=== PATIENT | female | born 1975 | race Two or more races ===

== ENCOUNTER 2024-05-30 11:44 | Inpatient (IN) | payer OTHER ==
[~2024-05-30] VITALS: Ht 157.5 cm; Wt 58.2 kg
[2024-05-30 11:48] VITALS: O2SAT 98
[2024-05-30 12:12] LABS: HEMATOCRIT. 25.8 % (36.0-48.0); HEMOGLOBIN. 7.8 g/dL (12.0-16.0); MEAN CORPUSCULAR HEMOGLOBIN 21.8 pg (28.0-32.0); MEAN CORPUSCULAR HGB CONC 30.4 g/dL (31.0-37.0); MEAN CORPUSCULAR VOLUME 71.5 fL (81.0-99.0); MEAN PLATELET VOLUME 6.8 fl (7.4-10.4); PLATELET 744 x1000/uL (130-400); RED CELL DISTRIBUTION WIDTH 16.5 % (11.6-14.6)
[2024-05-30 12:13] LABS: DIFFERENTIAL COMMENT 1
[2024-05-30 12:20] LABS: CHLORIDE 102 mEq/L (98-107); POTASSIUM 3.7 mEq/L (3.5-5.1); SODIUM 133 mEq/L (136-145)
[2024-05-30 12:21] LABS: CALCIUM 8.6 mg/dL (8.7-10.4); CARBON DIOXIDE 25 mEq/L (21-32)
[2024-05-30 12:26] LABS: GLUCOSE 164 mg/dL (70-105); UREA NITROGEN BLOOD 12 mg/dL (9-23)
[2024-05-30 12:28] LABS: ALANINE AMINOTRANSFERASE 10 IU/L (10-49); ALBUMIN 3.9 g/dL (3.2-4.8); ASPARTATE AMINOTRANSFERASE 12 IU/L (<34); BILIRUBIN DIRECT 0.3 mg/dL (<=3.0); BILIRUBIN TOTAL 0.6 mg/dL (0.1-1.0)
[2024-05-30 12:29] LABS: PROTEIN TOTAL 6.9 g/dL (6.0-8.3)
[2024-05-30] MEDS: PIPERACILLIN/TAZO 3.375G/50ML 50 ML IV ONE (13:23)
[2024-05-30] MEDS: SODIUM CHLORIDE 0.9% 1000ML BAG (SEPSIS BOLUS) IV ONE (13:23)
[2024-05-30 13:29] LABS: HCG SCREEN NEGATIVE
[2024-05-30 13:59] LABS: LACTIC ACID 2.4 mmol/L (0.4-2.0)
[2024-05-30 14:24] LABS: ANISOCYTOSIS 1+; HYPOCHROMASIA 1+; MICROCYTOSIS 2+; PLATELET ESTIMATE INCREASED
[2024-05-30] MEDS ORDERED: IOHEXOL-300 100 ML BOTTLE ONE (16:52)
[2024-05-30] MEDS ORDERED: IPRATROPIUM/ALBUTEROL 0.5-3(2.5)MG/3ML NEB NEB PRN (18:00)
[2024-05-30] MEDS ORDERED: CLONIDINE 0.1MG TABLET PO PRN (18:00)
[2024-05-30] MEDS ORDERED: DOCUSATE SODIUM 100MG CAPSULE PO PRN (18:00)
[2024-05-30] MEDS ORDERED: DEXTROSE 50% WATER 50ML SYRINGE IV PRN (18:00)
[2024-05-30] MEDS ORDERED: NITROGLYCERIN 0.4MG TABLET SL SL PRN (18:00)
[2024-05-30] MEDS ORDERED: GUAIFENESIN 200MG/10ML SUGAR FREE UDC PO PRN (18:00)
[2024-05-30] MEDS ORDERED: ACETAMINOPHEN 325MG TABLET PO PRN (18:00)
[2024-05-30] MEDS ORDERED: MAGNESIUM/ALUMINUM HYDROXIDE/SIMETHICONE 30ML UDC PO PRN (18:00)
[2024-05-30] MEDS ORDERED: MEROPENEM 1,000 MG in SODIUM CHLORIDE 0.9% 100 ML IV SCH (18:00)
[2024-05-30 18:44] LABS: IRON 11 ug/dL (50-170)
[2024-05-30 18:46] LABS: TOTAL IRON BINDING CAPACITY 344 ug/dl (250-425)
[2024-05-30 18:50] LABS: FOLIC ACID (FOLATE) SERUM > 20.00 ng/mL (>5.38); T4 FREE 1.16 ng/dL (0.89-1.76); THYROID STIMULATING HORMONE 0.74 uIU/mL (0.55-4.78)
[2024-05-30 18:51] LABS: VITAMIN B12 SERUM > 2000 pg/mL (211-911)
[2024-05-30] MEDS: ACETAMINOPHEN 325MG TABLET PO ONE (19:45)
[2024-05-30] MEDS: LACTATED RINGERS 1,200 ML IV ONE (20:08)
[2024-05-30] MEDS: MEROPENEM 1G/100ML IV SCH (20:23)
[2024-05-30] MEDS: ASCORBIC ACID 500 MG TABLET PO SCH (21:00)
[2024-05-30] MEDS: ENOXAPARIN 40MG/0.4ML SYR SUBCUT SCH (21:40)
[2024-05-30] MEDS: BLOOD SUGAR DIAGNOSTIC STRIP TEST SCH (21:40)
[2024-05-30] MEDS: INSULIN LISPRO 100 UNITS/ML SUBCUT SCH (21:41)
[2024-05-30 22:00] VITALS: BP 133/75; PULSE 116; RESP 20; TEMP 100.9
[2024-05-30] MEDS: VANCOMYCIN 1.25GM PMX (XELLIA) 250 ML IV NR (22:32)
[2024-05-30] MEDS: DEXT 5%/LACTATED RINGERS 1,000 ML IV SCH (22:33)
[2024-05-30] MEDS: KETOROLAC 15MG/ML VIAL IV PRN (23:19)
[2024-05-30] MEDS ORDERED: NAPR-681 PO (23:41)
[2024-05-30] MEDS ORDERED: FLUC200T51 PO (23:41)
[2024-05-30] MEDS ORDERED: BISA10SU62 PR (23:41)
[2024-05-30] MEDS ORDERED: CIPR500S3 PO (23:41)
[2024-05-31] VITALS (7 sets, daily range): BP systolic 110–136; BP diastolic 63–80; PULSE 92–116; RESP 18–22; TEMP 96.6–103.8
[2024-05-31] MEDS: ACETAMINOPHEN 325MG TABLET PO PRN (04:54)
[2024-05-31 07:09] LABS: CLARITY URINE CLEAR (CLEAR); COLOR URINE YELLOW (YELLOW); GLUCOSE URINE NEGATIVE (NEGATIVE); KETONES URINE TRACE (NEGATIVE); LEUKOCYTE ESTERASE URINE NEGATIVE (NEGATIVE); NITRITE URINE NEGATIVE (NEGATIVE); OCCULT BLOOD URINE 2+ (NEGATIVE); PROTEIN URINE 1+ (NEGATIVE); SPECIFIC GRAVITY URINE 1.035 (1.005-1.030); UROBILINOGEN URINE 0.2 E.U./dL (0.2-1.0)
[2024-05-31 07:29] LABS: UCG SCREEN NEGATIVE
[2024-05-31 07:34] LABS: CHLORIDE 103 mEq/L (98-107); POTASSIUM 3.3 mEq/L (3.5-5.1); SODIUM 134 mEq/L (136-145)
[2024-05-31 07:35] LABS: CALCIUM 8.3 mg/dL (8.7-10.4); CARBON DIOXIDE 25 mEq/L (21-32)
[2024-05-31 07:40] LABS: CREATININE 0.9 mg/dL (0.6-1.0); GLUCOSE 128 mg/dL (70-105); UREA NITROGEN BLOOD 18 mg/dL (9-23)
[2024-05-31 07:42] LABS: ALANINE AMINOTRANSFERASE 13 IU/L (10-49); ALBUMIN 3.4 g/dL (3.2-4.8); ASPARTATE AMINOTRANSFERASE 10 IU/L (<34); BILIRUBIN TOTAL 0.3 mg/dL (0.1-1.0); PHOSPHORUS 3.6 mg/dL (2.5-4.9); PROTEIN TOTAL 6.2 g/dL (6.0-8.3)
[2024-05-31 08:04] LABS: HEMATOCRIT. 23.8 % (36.0-48.0); HEMOGLOBIN. 7.2 g/dL (12.0-16.0); MEAN CORPUSCULAR HEMOGLOBIN 21.8 pg (28.0-32.0); MEAN CORPUSCULAR HGB CONC 30.2 g/dL (31.0-37.0); MEAN CORPUSCULAR VOLUME 72.3 fL (81.0-99.0); MEAN PLATELET VOLUME 7.8 fl (7.4-10.4); PLATELET 606 x1000/uL (130-400); RED BLOOD CELL COUNT 3.29 mill/uL (4.2-5.4); RED CELL DISTRIBUTION WIDTH 16.8 % (11.6-14.6); WHITE BLOOD COUNT 28.2 x1000/uL (4.5-11.0)
[2024-05-31 08:06] LABS: FINE GRANULAR CASTS URINE 0-5 /lpf; HYALINE CASTS URINE 0-5 /lpf
[2024-05-31 08:07] LABS: SQUAMOUS EPITHELIAL CELL URINE 1+ /lpf (RARE/1+)
[2024-05-31 08:07] LABS: DIFFERENTIAL COMMENT 1
[2024-05-31 08:10] LABS: *AMPHETAMINES SCREEN URINE PRESUMPTIVE POSITIVE (NEGATIVE); *BARBITURATES SCREEN URINE NEGATIVE (NEGATIVE); *BENZODIAZEPINES SCREEN URINE NEGATIVE (NEGATIVE); *COCAINE SCREEN URINE NEGATIVE (NEGATIVE); BACTERIA URINE 2+; METHADONE URINE SCREEN NEGATIVE (NEGATIVE)
[2024-05-31 08:11] LABS: CANNABINOID URINE SCREEN NEGATIVE (NEGATIVE); ECSTASY MDMA SCREEN URINE NEGATIVE (NEGATIVE); OPIATES URINE SCREEN NEGATIVE (NEGATIVE); PHENCYCLIDINE URINE SCREEN NEGATIVE (NEGATIVE)
[2024-05-31] MEDS: POTASSIUM CHLORIDE 20MEQ TABLET SR PO NR (09:25)
[2024-05-31] MEDS: PANTOPRAZOLE SODIUM 40 MG/VIAL IV SCH (09:25)
[2024-05-31] MEDS: VANCOMYCIN 750MG/150ML (BAXTER) IV SCH (09:25)
[2024-05-31] MEDS: ZINC SULFATE 220 MG ( 50 ) CAPSULE PO SCH (09:25)
[2024-05-31 16:47] LABS: HYPOCHROMASIA 2+; MICROCYTOSIS 2+; PLATELET ESTIMATE INCREASED
[2024-06-01] VITALS (10 sets, daily range): BP systolic 107–138; BP diastolic 62–84; PULSE 89–114; RESP 18–20; TEMP 89–102.4
[2024-06-01 06:55] LABS: CHLORIDE 106 mEq/L (98-107); POTASSIUM 3.8 mEq/L (3.5-5.1); SODIUM 136 mEq/L (136-145)
[2024-06-01 06:56] LABS: CALCIUM 8.1 mg/dL (8.7-10.4); CARBON DIOXIDE 25 mEq/L (21-32)
[2024-06-01 07:01] LABS: GLUCOSE 123 mg/dL (70-105); UREA NITROGEN BLOOD 15 mg/dL (9-23)
[2024-06-01 07:03] LABS: ALANINE AMINOTRANSFERASE < 7 IU/L (10-49); ALBUMIN 3.2 g/dL (3.2-4.8); ASPARTATE AMINOTRANSFERASE 10 IU/L (<34); BILIRUBIN TOTAL 0.3 mg/dL (0.1-1.0); PROTEIN TOTAL 5.9 g/dL (6.0-8.3)
[2024-06-01 07:08] LABS: MEAN CORPUSCULAR HEMOGLOBIN 21.8 pg (28.0-32.0); MEAN CORPUSCULAR HGB CONC 30.5 g/dL (31.0-37.0); MEAN CORPUSCULAR VOLUME 71.5 fL (81.0-99.0); MEAN PLATELET VOLUME 7.6 fl (7.4-10.4); PLATELET 477 x1000/uL (130-400); RED BLOOD CELL COUNT 2.86 mill/uL (4.2-5.4); RED CELL DISTRIBUTION WIDTH 16.5 % (11.6-14.6)
[2024-06-01 07:22] LABS: CREATININE 0.5 mg/dL (0.6-1.0)
[2024-06-01 07:54] LABS: DIFFERENTIAL COMMENT 1
[2024-06-01 07:57] LABS: HEMATOCRIT. 20.5 % (36.0-48.0); HEMOGLOBIN. 6.2 g/dL (12.0-16.0)
[2024-06-01] MEDS: PIPERACILLIN/TAZO 3.375G/50ML 50 ML IV SCH ×2 (16:00→21:35)
[2024-06-01] MEDS: ONDANSETRON HCL 4MG/2ML INJ IV PRN (16:52)
[2024-06-01 19:46] LABS: HYPOCHROMASIA 1+; MICROCYTOSIS 1+; PLATELET ESTIMATE NORMAL
[2024-06-01] MEDS ORDERED: VANCOMYCIN 1G PREMIX 200 ML IV SCH (21:00)
[2024-06-01] MEDS: ZOLPIDEM TARTRATE 5MG TABLET PO PRN (21:36)
[2024-06-02] VITALS: BP 128/74; PULSE 98; RESP 18; TEMP 102.2
[2024-06-02 04:00] VITALS: BP 115/72; PULSE 95; RESP 18; TEMP 98.9
[2024-06-02 04:14] LABS: CHLAMYDIA TRACHOMATIS NAA Negative (Negative); NEISSERIA GONORRHOEAE NAA Negative (Negative)
[2024-06-02 07:41] LABS: HEMATOCRIT. 22.8 % (36.0-48.0); HEMOGLOBIN. 7.1 g/dL (12.0-16.0); MEAN CORPUSCULAR HEMOGLOBIN 22.6 pg (28.0-32.0); MEAN CORPUSCULAR VOLUME 73.1 fL (81.0-99.0); MEAN PLATELET VOLUME 7.9 fl (7.4-10.4); PLATELET 462 x1000/uL (130-400); RED BLOOD CELL COUNT 3.12 mill/uL (4.2-5.4); RED CELL DISTRIBUTION WIDTH 17.3 % (11.6-14.6)
[2024-06-02 07:46] LABS: DIFFERENTIAL COMMENT 1
[2024-06-02 07:53] LABS: CARBON DIOXIDE 26 mEq/L (21-32); CHLORIDE 102 mEq/L (98-107); POTASSIUM 3.5 mEq/L (3.5-5.1); SODIUM 135 mEq/L (136-145)
[2024-06-02 07:54] LABS: CALCIUM 8.1 mg/dL (8.7-10.4)
[2024-06-02 07:59] LABS: CREATININE 0.6 mg/dL (0.6-1.0); GLUCOSE 127 mg/dL (70-105); UREA NITROGEN BLOOD 13 mg/dL (9-23)
[2024-06-02 08:00] VITALS: BP 123/75; PULSE 98; RESP 20; TEMP 99.3
[2024-06-02 16:00] VITALS: BP 130/74; PULSE 94; RESP 18; TEMP 97.9
[2024-06-02 16:35] LABS: ANISOCYTOSIS 1+; HYPOCHROMASIA 1+; MICROCYTOSIS 2+; PLATELET ESTIMATE INCREASED
[2024-06-02 20:00] VITALS: BP 138/83; PULSE 110; RESP 18; TEMP 103
[2024-06-03] VITALS: BP 128/85; RESP 70; TEMP 98.2
[2024-06-03 04:00] VITALS: BP 134/78; PULSE 92; RESP 18; TEMP 98.9
[2024-06-03 08:00] VITALS: BP 122/75; PULSE 94; RESP 18; TEMP 97.9
[2024-06-03] MEDS: TRAMADOL 50MG TABLET PO PRN (10:48)
[2024-06-03 12:00] VITALS: BP 139/85; PULSE 99; RESP 18; TEMP 97.9
[2024-06-03 16:00] VITALS: BP 140/83; PULSE 96; RESP 18; TEMP 97.9
[2024-06-03 20:00] VITALS: BP 142/85; PULSE 100; RESP 18; TEMP 98.4
[2024-06-04] VITALS: BP 127/80; PULSE 96; RESP 19; TEMP 99
[2024-06-04 04:00] VITALS: BP 118/68; PULSE 68; RESP 18; TEMP 98.8
[2024-06-04 05:39] LABS: CARBON DIOXIDE 28 mEq/L (21-32); CHLORIDE 99 mEq/L (98-107); POTASSIUM 3.5 mEq/L (3.5-5.1); SODIUM 134 mEq/L (136-145)
[2024-06-04 05:41] LABS: CALCIUM 7.8 mg/dL (8.7-10.4)
[2024-06-04 05:46] LABS: CREATININE 0.5 mg/dL (0.6-1.0); GLUCOSE 134 mg/dL (70-105); UREA NITROGEN BLOOD 6 mg/dL (9-23)
[2024-06-04 06:39] LABS: HEMATOCRIT. 25.7 % (36.0-48.0); HEMOGLOBIN. 7.9 g/dL (12.0-16.0); MEAN CORPUSCULAR HEMOGLOBIN 22.3 pg (28.0-32.0); MEAN CORPUSCULAR HGB CONC 30.8 g/dL (31.0-37.0); MEAN CORPUSCULAR VOLUME 72.4 fL (81.0-99.0); MEAN PLATELET VOLUME 7.9 fl (7.4-10.4); PLATELET 597 x1000/uL (130-400); RED BLOOD CELL COUNT 3.55 mill/uL (4.2-5.4); RED CELL DISTRIBUTION WIDTH 18.6 % (11.6-14.6); WHITE BLOOD COUNT 19.3 x1000/uL (4.5-11.0)
[2024-06-04 07:28] LABS: DIFFERENTIAL COMMENT 1
[2024-06-04 08:00] VITALS: BP 145/88; PULSE 99; RESP 18; TEMP 88
[2024-06-04 12:00] VITALS: BP 125/53; PULSE 65; RESP 18; TEMP 97.5
[2024-06-04 14:46] LABS: ANISOCYTOSIS 1+; MICROCYTOSIS 1+; PLATELET ESTIMATE INCREASED
[2024-06-04 16:00] VITALS: BP 146/77; PULSE 90; RESP 18; TEMP 97
[2024-06-04] MEDS ORDERED: NALOXONE HCL 0.4MG/ML VIAL IV PRN (16:30)
== END 2024-06-04 18:34 | disposition left against medical advice (07) | DRG 871 ==
LOC: ER 11:44 → EDBEDREQ 17:53 → 7EST 17:54
PROVIDERS: ADMIT Internal Medicine; ATTEND Internal Medicine
DX: A41.9 Sepsis, unspecified organism (principal); K65.1 Peritoneal abscess; E87.1 Hypo-osmolality and hyponatremia; D62 Acute posthemorrhagic anemia; E87.20 Acidosis, unspecified; N39.0 Urinary tract infection, site not specified; E83.51 Hypocalcemia; N89.8 Other specified noninflammatory disorders of vagina; R65.20 Severe sepsis without septic shock; Z20.822 Contact with and (suspected) exposure to COVID-19; K80.20 Calculus of gallbladder without cholecystitis without obstruction; D63.8 Anemia in other chronic diseases classified elsewhere; F17.210 Nicotine dependence, cigarettes, uncomplicated; N70.93 Salpingitis and oophoritis, unspecified; Z53.29 Procedure and treatment not carried out because of patient's decision for other reasons; D75.839 Thrombocytosis, unspecified
CPT/HCPCS: 36415; 71045; 74177; 76830; 76856; 80048; 80053; 80076; 80202; 80305; 81003; 81025; 82607; 82746; 82962; 83036; 83540; 83550; 83605; 83735; 84100; 84145; 84439; 84443; 84703; 85025; 86850; 86900; 86920; 87210; 87426; 87491; 87591; 88305; 88331; 93005; 93306; 93970; 99291; J1650; J1885; J2185; J2405; J2470; J2543; J3370; J7030; J7060; P9016; Q9967

== ENCOUNTER 2025-11-01 22:10 | Inpatient (IN) | payer SELFPAY ==
[~2025-11-01] VITALS: Ht 160 cm; Wt 46.7 kg
[~2025-11-01 22:10] MED LIST: BISA10SU62 PR; CIPR500S3 PO; FLUC200T51 PO; NAPR-681 PO
[2025-11-01 22:26] VITALS: O2SAT 98
[2025-11-01 23:13] LABS: HEMATOCRIT. 22.0 % (36.0-48.0); HEMOGLOBIN. 7.4 g/dL (12.0-16.0); MEAN PLATELET VOLUME 7.5 fl (7.4-10.4); PLATELET 174 x1000/uL (130-400); RED BLOOD CELL COUNT 2.43 mill/uL (4.2-5.4); RED CELL DISTRIBUTION WIDTH 15.3 % (11.6-14.6)
[2025-11-01 23:27] LABS: CREATININE 0.8 mg/dL (0.6-1.0); PROTEIN TOTAL 6.7 g/dL (6.0-8.3); TROPONIN I HIGH SENSITIVITY 11 ng/L (3.0-34); UREA NITROGEN BLOOD 9 mg/dL (9-23)
[2025-11-01 23:29] LABS: ASPARTATE AMINOTRANSFERASE 21 IU/L (<34); BILIRUBIN DIRECT 0.2 mg/dL (<=3.0); BILIRUBIN TOTAL 0.6 mg/dL (0.1-1.0)
[2025-11-01] MEDS: ONDANSETRON HCL 4MG/2ML INJ IV ONE (23:47)
[2025-11-01] MEDS: MORPHINE SULFATE 4 MG/ML INJ (FOR IV/IM USE) IV ONE (23:47)
[2025-11-01] MEDS: KCL 20MEQ/100ML PREMIX 100 ML IV STA (23:52)
[2025-11-01] MEDS: SODIUM CHLORIDE 0.9% 1,000 ML IV ONE (23:52)
[2025-11-02] VITALS (10 sets, daily range): BP systolic 111–147; BP diastolic 57–107; PULSE 72–95; RESP 15–22; TEMP 36.1956–38.9; O2SAT 95–100
[2025-11-02 00:37] LABS: HCG SCREEN NEGATIVE
[2025-11-02 01:05] LABS: CLARITY URINE CLOUDY (CLEAR); COLOR URINE YELLOW (YELLOW); GLUCOSE URINE NEGATIVE (NEGATIVE); KETONES URINE TRACE (NEGATIVE); LEUKOCYTE ESTERASE URINE 2+ (NEGATIVE); NITRITE URINE NEGATIVE (NEGATIVE); OCCULT BLOOD URINE 3+ (NEGATIVE); PH URINE 6.5 (4.5-8.0); PROTEIN URINE TRACE (NEGATIVE); SPECIFIC GRAVITY URINE 1.006 (1.005-1.030); UROBILINOGEN URINE 0.2 E.U./dL (0.2-1.0)
[2025-11-02 01:20] LABS: TROPONIN I HIGH SENSITIVITY 11 ng/L (3.0-34)
[2025-11-02] MEDS: CEFTRIAXONE 1GM/50ML 50 ML IV ONE (02:13)
[2025-11-02] MEDS ORDERED: TOPUD PO (05:26)
[2025-11-02] MEDS ORDERED: [UNRECOGNIZED DRUG - CODE] (05:26)
[2025-11-02] MEDS ORDERED: IBUP-2028 PO (05:26)
[2025-11-02 06:02] LABS: WBC URINE TNTC /hpf (0-2)
[2025-11-02 06:06] LABS: SQUAMOUS EPITHELIAL CELL URINE NONE SEEN /lpf (RARE/1+)
[2025-11-02 06:08] LABS: BACTERIA URINE TRACE
[2025-11-02] MEDS ORDERED: ACETAMINOPHEN 325MG TABLET PO ONE (07:15)
[2025-11-02] MEDS ORDERED: ONDANSETRON HCL 4MG/2ML INJ IV PRN ×2 (07:30→09:00)
[2025-11-02] MEDS ORDERED: NALOXONE HCL 0.4MG/ML VIAL IV PRN (07:45)
[2025-11-02] MEDS: MORPHINE SULFATE 2 MG/ML INJ (NOT FOR IM USE) IV PRN (08:43)
[2025-11-02 08:54] LABS: BAND% 10.0 % (1.0-6.0); LYMPHOCYTES % MANUAL 5.0 % (20.0-60.0); MONOCYTES % MANUAL 8.0 % (2.0-8.0); NEUTROPHILS % MANUAL 77.0 % (45.0-75.0)
[2025-11-02 08:56] LABS: PLATELET ESTIMATE NORMAL
[2025-11-02] MEDS ORDERED: MAGNESIUM/ALUMINUM HYDROXIDE/SIMETHICONE 30ML UDC PO PRN (09:00)
[2025-11-02] MEDS ORDERED: GUAIFENESIN 200MG/10ML SUGAR FREE UDC PO PRN (09:00)
[2025-11-02] MEDS ORDERED: DOCUSATE SODIUM 100MG CAPSULE PO PRN (09:00)
[2025-11-02] MEDS ORDERED: IPRATROPIUM/ALBUTEROL 0.5-3(2.5)MG/3ML NEB HHN PRN (09:00)
[2025-11-02] MEDS ORDERED: ENOXAPARIN 40MG/0.4ML SYR SUBCUT ONE (09:00)
[2025-11-02] MEDS: POTASSIUM CHLORIDE 20MEQ TABLET SR PO SCH (09:43)
[2025-11-02] MEDS: HYDROCODONE/ACETAMINOPHEN 7.5/325MG TABLET PO PRN ×2 (10:03→13:51)
[2025-11-02] MEDS: MULTIVITAMINS,THER W-MINERALS TABLET PO SCH (10:03)
[2025-11-02] MEDS: FOLIC ACID 1MG TABLET PO SCH (10:04)
[2025-11-02] MEDS: DEXT 5%/0.45% NACL 1000ML 1,000 ML IV SCH (11:04)
[2025-11-02 18:45] LABS: PLATELET 198 x1000/uL (130-400); RED BLOOD CELL COUNT 2.50 mill/uL (4.2-5.4); RED CELL DISTRIBUTION WIDTH 15.5 % (11.6-14.6)
[2025-11-02 19:06] LABS: VITAMIN B12 SERUM 1819 pg/mL (211-911)
[2025-11-02 19:07] LABS: FOLIC ACID (FOLATE) SERUM > 20.00 ng/mL (>5.38)
[2025-11-02 19:38] LABS: HEPATITIS C AB NON REACTIVE (Neg) (Negative)
[2025-11-02] MEDS: FAMOTIDINE 20MG TABLET PO SCH (20:57)
[2025-11-02] MEDS: ACETAMINOPHEN 325MG TABLET PO PRN (20:58)
[2025-11-02] MEDS: MAGNESIUM 4 G PREMIX 100 ML IV SCH (22:04)
[2025-11-02] MEDS ORDERED: CEFTRIAXONE 1GM/50ML 50 ML IV SCH (23:00)
[2025-11-03] VITALS (9 sets, daily range): BP systolic 111–152; BP diastolic 59–90; PULSE 8–90; RESP 18–20; TEMP 36.7–37.5; O2SAT 94–100
[2025-11-03] MEDS: CEFTRIAXONE 1GM/50ML 50 ML IV NR (00:55)
[2025-11-03 06:09] LABS: CREATININE 0.8 mg/dL (0.6-1.0); TRIGLYCERIDE 73 mg/dL (0-150); UREA NITROGEN BLOOD 5 mg/dL (9-23)
[2025-11-03 06:10] LABS: LDL CHOLESTEROL 90 mg/dL (5-100)
[2025-11-03 06:11] LABS: T4 FREE 1.67 ng/dL (0.89-1.76)
[2025-11-03 06:15] LABS: BASOPHILS % 0.1 % (0.0-2.0); EOSINOPHILS % 0.0 % (0.0-5.0); HEMATOCRIT. 23.4 % (36.0-48.0); HEMOGLOBIN. 7.7 g/dL (12.0-16.0); LYMPHOCYTES % 5.9 % (20.0-50.0); MEAN PLATELET VOLUME 7.7 fl (7.4-10.4); MONOCYTES % 12.6 % (2.0-8.0); NEUTROPHILS % 81.4 % (40.0-76.0); PLATELET 227 x1000/uL (130-400); RED BLOOD CELL COUNT 2.55 mill/uL (4.2-5.4); RED CELL DISTRIBUTION WIDTH 15.5 % (11.6-14.6)
[2025-11-03] MEDS ORDERED: SULF1TAB48 MT (12:37)
[2025-11-03] MEDS ORDERED: CIPR500S3 MT (12:40)
[2025-11-03] MEDS ORDERED: MAGN400C MT (12:46)
[2025-11-03] MEDS ORDERED: CEFTRIAXONE 1GM/50ML 50 ML IV SCH (20:00)
[2025-11-19] MEDS ORDERED: DEXT 5%/0.45% NACL 1000ML 1,000 ML IV SCH (07:30)
== END 2025-11-03 12:55 | disposition home or self-care (01) | DRG 48 ==
LOC: ER 22:10 → EDBEDREQ 22:49 → EDBEDREQTM 11-02 02:10 → EDBEDREQDT 11-02 02:10 → MICUSO 11-02 08:11 → 7WST 11-02 12:54
PROVIDERS: ADMIT Hospitalist; ATTEND Hospitalist
DX: G90.89 Other disorders of autonomic nervous system (principal); N13.6 Pyonephrosis; D64.9 Anemia, unspecified; E83.42 Hypomagnesemia; C53.9 Malignant neoplasm of cervix uteri, unspecified; D45 Polycythemia vera; E86.0 Dehydration; E87.6 Hypokalemia; K80.20 Calculus of gallbladder without cholecystitis without obstruction; F17.210 Nicotine dependence, cigarettes, uncomplicated; G89.29 Other chronic pain; K59.00 Constipation, unspecified; Z71.6 Tobacco abuse counseling; Z85.41 Personal history of malignant neoplasm of cervix uteri
CPT/HCPCS: 36415; 71045; 74176; 80048; 80061; 80076; 81003; 82550; 82607; 82728; 82746; 83540; 83550; 83735; 83880; 84439; 84443; 84484; 84703; 85025; 85027; 86705; 86850; 86900; 87340; 93005; 99291; J0696; J2270; J2405; J3475; J3480; J7030